=== PATIENT | female | born 1980 | race Caucasian/White ===

== ENCOUNTER 2018-02-09 13:20 | Emergency (ER) | payer MEDICAID, OTHER ==
[2018-02-09] MEDS: LIDOCAINE 4% CR TOP (14:55)
[2018-02-09] MEDS ORDERED: LIDOCAINE 5% 35 GM OINT TOP (15:00)
== END 2018-02-09 15:05 | disposition home or self-care (01) ==
LOC: FTE 13:20
DX: B02.9 Zoster without complications (principal)
CPT/HCPCS: 99283; Z7502